=== PATIENT | male | born 1960 | race Caucasian/White ===

== ENCOUNTER 2018-03-03 10:12 | Outpatient (CLI) | payer OTHER ==
--- NOTE | 2018-03-03 14:03 | MRI ---
MRI BRAIN WITHOUT CONTRAST: Date: 03/03/18 HISTORY: Cerebral infarction. Visual disturbance. FINDINGS: Limited evaluation due to motion degradation. Hemosiderin deposition posterior to the right thalamus and along the right periventricular region likely due to remote insult. There is associated subtle gl iotic change and malacic change. T2 and FLAIR white matter hyperintensities are likely due to chronic small vessel ischemic changes. No parenchymal mass, mass effect, or midline shift. Brain volume is age-appropriate. Cortical rojas-wh ite matter differentiation is preserved. Central arterial flow-voids are maintained. Absent restricted diffusion. Ventricular system is prominent. Calvarium has a normal T1 marrow signal intensity. Midline brain parenchymal structures are unremarka ble. IMPRESSION: 1. Absent restricted diffusion. No acute infarct. 2. Prominence of the ventricular system, greater than expected for the degree of atrophy. 3. Chronic small vessel ischemic changes of the white matter. POS: ANGELES
== END 2018-03-03 10:13 | disposition home or self-care (01) ==
LOC: BICMRI 10:12
PROVIDERS: ATTEND Psychiatry & Neurology Neurology
DX: I63.9 Cerebral infarction, unspecified (principal); H53.9 Unspecified visual disturbance
CPT/HCPCS: 70551

== ENCOUNTER 2018-03-17 10:49 | Outpatient (CLI) | payer OTHER ==
--- NOTE | 2018-03-19 12:53 | RAD ---
MODIFIED BARIUM SWALLOW IN THE PESENCE OF SPEECH PATHOLOGIST: HISTORY: Dysphagia following cerebral infarction. Dysphagia, oropharyngeal phase. FINDINGS: In the presence of the speech pathologist, the patient was administered puree, nectar thick, thin liq uid, and mechanical soft consistencies, along with a barium tablet. No evidence of penetration or as piration. EXPOSURE: 3.8 seconds. 25.17 mGy. IMPRESSION: Please refer to speech pathology report for feeding recommendations. POS: ANGELES
== END 2018-03-17 10:50 | disposition home or self-care (01) ==
PROVIDERS: ATTEND Nurse Practitioner Family
DX: I69.391 Dysphagia following cerebral infarction (principal); R13.12 Dysphagia, oropharyngeal phase
CPT/HCPCS: 74230; G8996-GN-CJ; G8997-GN-CI; G8998-GN-CJ